=== PATIENT | female | born 1980 | race Caucasian/White ===

== ENCOUNTER 2019-02-09 08:05 | Day surgery (SDC) | payer OTHER ==
[2019-01-30 12:11] LABS: HEMATOCRIT 43.8 % (36.0-47.0); HEMOGLOBIN 15.4 g/dL (12.0-15.5); MEAN CORPUSCULAR HEMOGLOBIN 32.4 pg (27.0-33.4); MEAN CORPUSCULAR HGB CONC 35.1 g/dL (32.0-36.0); MEAN CORPUSCULAR VOLUME 92 fl (80-97); PLATELET COUNT 210 10^3/uL (150-450); RED BLOOD COUNT 4.75 10^6/uL (3.72-5.28); RED CELL DISTRIBUTION WIDTH 13.2 % (11.5-14.0)
[2019-01-30 12:34] LABS: ALBUMIN 4.4 g/dL (3.5-5.0); ALKALINE PHOSPHATASE 74 U/L (38-126); ANION GAP 10 (5-19); ASPARTATE AMINO TRANSFERASE 24 U/L (14-36); BILIRUBIN,DIRECT 0.1 mg/dL (0.0-0.4); BILIRUBIN,TOTAL 0.6 mg/dL (0.2-1.3); BLOOD UREA NITROGEN 15 mg/dL (7-20); CALCIUM 9.6 mg/dL (8.4-10.2); CARBON DIOXIDE 27 mmol/L (22-30); CHLORIDE 103 mmol/L (98-107); GLUCOSE 91 mg/dL (75-110); POTASSIUM 3.6 mmol/L (3.6-5.0); TOTAL PROTEIN 7.7 g/dL (6.3-8.2)
[2019-01-30 12:37] LABS: APPEARANCE,URINE CLOUDY; BILIRUBIN,URINE NEGATIVE (NEGATIVE); COLOR,URINE YELLOW; GLUCOSE, URINE NEGATIVE (NEGATIVE); KETONES,URINE NEGATIVE (NEGATIVE); LEUKOCYTE ESTERASE,URINE TRACE (NEGATIVE); NITRITE,URINE NEGATIVE (NEGATIVE); PROTEIN,URINE 30 mg/dL (NEGATIVE); URINE SPECIFIC GRAVITY 1.026; UROBILINOGEN,URINE NEGATIVE mg/dL (<2.0)
[~2019-02-09 08:05] MED LIST: CEFAZOLIN SODIUM 1 GM in DEXTROSE 5%-WATER 50 ML IV PRN; DEXAMETHASONE SOD PHOSPHATE INJ 4 MG/1 ML VIAL ONE; GLYCOPYRROLATE 1 MG/5 ML VIAL ONE; KETOROLAC TROMETHAMINE 60 MG/2 ML SDV ONE; LACTATED RINGERS 1000 ML IV PRN; LIDOCAINE 2% INJ-PF (20 MG/ML) 2 ML AMPUL ONE; NEOSTIGMINE METHYLSULFATE 10 MG/10 ML VIAL ONE; ONDANSETRON HCL INJ/PF 4 MG/2 ML SDV ONE; ROCURONIUM BROMIDE INJ 50 MG/5 ML VIAL IV ONE; SUCCINYLCHOLINE CHLORIDE INJ 200 MG/10 ML VIAL ONE
[2019-02-09] MEDS ORDERED: BUPIVACAINE HCL 0.25 % INJ/PF (2.5 MG/1 ML) 30 ML VIAL ONE (09:49)
[2019-02-09] MEDS ORDERED: MIDAZOLAM 2 MG/2 ML INJ ONE (09:49)
[2019-02-09] MEDS ORDERED: FENTANYL CITRATE INJ/PF 250 MCG/5 ML AMPULE ONE (09:49)
[2019-02-09] MEDS ORDERED: PROPOFOL INJ 200 MG/20 ML VIAL IV ONE (09:49)
[2019-02-09] MEDS ORDERED: MEPERIDINE HCL/PF INJ 25 MG/1 ML DISP.SYRIN IV PRN (10:37)
[2019-02-09] MEDS ORDERED: OXYCODONE-ACETAMINOPHEN 5-325 MG TABLET PO PRN ×2 (10:37)
[2019-02-09] MEDS ORDERED: FENTANYL CITRATE INJ/PF 100 MCG/2 ML AMPUL IV PRN ×3 (10:37)
[2019-02-09] MEDS ORDERED: PROMETHAZINE HCL INJ 25 MG/1 ML VIAL IV PRN ×2 (10:37)
[2019-02-09] MEDS ORDERED: DIPHENHYDRAMINE HCL 50 MG/ML VIAL IV PRN (10:37)
--- NOTE | 2019-02-09 12:50 | Operative Report ---
Operative Report DATE OF SURGERY: 02/09/19 PREOPERATIVE DIAGNOSIS: Pelvic pain POSTOPERATIVE DIAGNOSIS: Same plus adhesions and a left ovarian simple cyst OPERATION: Attempted robotic assisted hysterectomy with open laparotomy and total abdominal hysterectomy bilateral salpingo-ectomy and aspiration of left ovarian cyst SURGEON: JOSE CARRIZALES 1ST TITLE ASSISTANT: OPAL WANG ANESTHESIA: GA TISSUE REMOVED OR ALTERED: Uterus and tubes COMPLICATIONS: Multiple adhesions from the bladder to the anterior surface of the uterus ESTIMATED BLOOD LOSS: 500 cc PROCEDURE: Patient was placed in a dorsal lithotomy was prepped and sterile fashion. Speculum placed cervix visualized and grasped with single-tooth tenaculum sounded to a depth of 8 cm. The V care is in place per protocol. Speculum is removed and attention turned to the abdomen where a supraumbilical incision was made trocar was introduced with insufflation of the abdomen. This was noted and there were adhesions noted from the anterior abdominal wall to the surface of the uterus. Second puncture made lateral to the first on the right of 5 trocar was reduced third lateral on the left and a 5 was introduced and a accessory port on super iliac crest. Robot was docked in usual fashion. Using monopolar and bipolar cautery the left tube was identified and divided along the mesosalpinx to the round ligament. This was repeated on the right. The broad ligaments divided down to the level of the adhesions with each pedicle being cauterized and divided. The bladder flap could not be made using robotic techniques and was decided to abandon the laparoscopic approach and open the abdomen. The robot was undocked and the trocar sleeves were removed. A Pfannenstiel incision was made to the existing Pfannenstiel eschar with the incision extended through the subcutaneous tissue and fascia resection fascia start divided rectus musculature divided in a prior to peritoneum was entered with sharp dissection. It was packed with moistened packs and retractor was placed. Mendy was called for assistance. Uterus were grasped with a thyroid clamp and serial clamps on each side of the uterus each pedicle being clamped divided suture 2-0 Vicryl the bladder flap was created with sharp and blunt dissection. The excision down the broad ligament on both sides was continued to the level of the cervix was crossclamped and uterus removed with sharp dissection. Was closed with interrupted sutures of 2-0 Vicryl. Was irrigated with normal saline hemostasis was noted. Removed and the retractor were removed. Closure 0 Vicryl running fashion and the skin with insorb piero. The puncture wounds previously made were closed with 4-0 Vicryl subcu. Patient he remained clear without procedure she was taken to recovery room in good condition
[2019-02-09] MEDS: FENTANYL CITRATE INJ/PF 100 MCG/2 ML AMPUL ONE ×2 (12:55→13:01)
[2019-02-09] MEDS ORDERED: PROMETHAZINE HCL INJ 25 MG/1 ML VIAL ONE (13:03)
[2019-02-09] MEDS ORDERED: ACETAMINOPHEN 1,000 MG/100 ML RTUPB IV ONE (13:41)
[2019-02-09] MEDS ORDERED: MORPHINE SULFATE 10 MG/ML INJ ONE (13:41)
[2019-02-09] MEDS ORDERED: DEXTROSE 5%-LACTATED RINGERS 1,000 ML IV PRN (13:48)
[2019-02-09] MEDS ORDERED: MORPHINE SULFATE 10 MG/ML INJ IM PRN (13:49)
[2019-02-09] MEDS: OXYCODONE-ACETAMINOPHEN 5-325 MG TABLET PO PRN (15:29)
[2019-02-09] MEDS: IBUPROFEN 800 MG TABLET PO SCH ×2 (17:43→21:00)
[2019-02-10] MEDS: IBUPROFEN 800 MG TABLET PO SCH ×3 (05:53→21:01)
--- NOTE | 2019-02-10 07:31 | PDOC DISCHARGE SUMMARY ---
Impression - Admit/DC Date/PCP Admission Date/Primary Care Provider: JOSE CARRIZALES MD Discharge Date: 02/10/19 - Discharge Diagnosis (1) Endometriosis Is this a current diagnosis for this admission?: Yes - Additional Information Resuscitation Status: Full Code Discharge Diet: As Tolerated Discharge Activity: Activity As Tolerated, Energy Conservation, No Lifting/Push/Pulling, Pelvic Rest, No tub bath, Walk Frequently Referrals: JOSE CARRIZALES MD [Primary Care Provider] - 02/17/19 8:30 am (ANY QUESTION OR CONCERNS CALL THE OFFICE.) Home Medications: No Home Medications 01/30/19 History of Present Illiness History of Present Illness: YENIFER MANRIQUEZ is a 38 year old female admitted for hysterectomy because of pelvic pain and failed conservative therapy. Hospital Course Hospital Course: pt tolerationg regular diet bladder fuction good and ambulating without difficulty. Afebrile and alert. Physical Exam - Physical Exam Vital Signs: Temp Pulse Resp BP Pulse Ox 98.9 F 77 18 112/67 94 02/10/19 04:06 02/10/19 04:06 02/10/19 04:06 02/10/19 04:06 02/10/19 04:06 Intake & Output 02/09/19 02/10/19 02/11/19 06:59 06:59 06:59 Intake Total 2000 Output Total 1999 Balance 0 Weight 111.5 kg General appearance: PRESENT: no acute distress Respiratory exam: PRESENT: clear to auscultation lauren Cardiovascular exam: PRESENT: RRR GI/Abdominal exam: PRESENT: soft Results Laboratory Results: WBC 9.0 10^3/uL (4.0-10.5) 01/30/19 11:09 RBC 4.75 10^6/uL (3.72-5.28) 01/30/19 11:09 Hgb 15.4 g/dL (12.0-15.5) 01/30/19 11:09 Hct 43.8 % (36.0-47.0) 01/30/19 11:09 MCV 92 fl (80-97) 01/30/19 11:09 MCH 32.4 pg (27.0-33.4) 01/30/19 11:09 MCHC 35.1 g/dL (32.0-36.0) 01/30/19 11:09 RDW 13.2 % (11.5-14.0) 01/30/19 11:09 Plt Count 210 10^3/uL (150-450) 01/30/19 11:09 Sodium 140.1 mmol/L (137-145) 01/30/19 11:09 Potassium 3.6 mmol/L (3.6-5.0) 01/30/19 11:09 Chloride 103 mmol/L (98-107) 01/30/19 11:09 Carbon Dioxide 27 mmol/L (22-30) 01/30/19 11:09 Anion Gap 10 (5-19) 01/30/19 11:09 BUN 15 mg/dL (7-20) 01/30/19 11:09 Creatinine 0.76 mg/dL (0.52-1.25) 01/30/19 11:09 Est GFR ( Amer) > 60 (>60) 01/30/19 11:09 Est GFR (MDRD) Non-Af > 60 (>60) 01/30/19 11:09 Glucose 91 mg/dL (75-110) 01/30/19 11:09 Calcium 9.6 mg/dL (8.4-10.2) 01/30/19 11:09 Total Bilirubin 0.6 mg/dL (0.2-1.3) 01/30/19 11:09 Direct Bilirubin 0.1 mg/dL (0.0-0.4) 01/30/19 11:09 Neonat Total Bilirubin Not Reportable 01/30/19 11:09 Neonat Direct Bilirubin Not Reportable 01/30/19 11:09 Neonat Indirect Bili Not Reportable 01/30/19 11:09 AST 24 U/L (14-36) 01/30/19 11:09 ALT 25 U/L (<35) 01/30/19 11:09 Alkaline Phosphatase 74 U/L (38-126) 01/30/19 11:09 Total Protein 7.7 g/dL (6.3-8.2) 01/30/19 11:09 Albumin 4.4 g/dL (3.5-5.0) 01/30/19 11:09 Urine Color YELLOW 01/30/19 11:12 Urine Appearance CLOUDY 01/30/19 11:12 Urine pH 5.0 (5.0-9.0) 01/30/19 11:12 Ur Specific [place] 1.026 01/30/19 11:12 Urine Protein 30 mg/dL (NEGATIVE) H 01/30/19 11:12 Urine Glucose (UA) NEGATIVE mg/dL (NEGATIVE) 01/30/19 11:12 Urine Ketones NEGATIVE mg/dL (NEGATIVE) 01/30/19 11:12 Urine Blood NEGATIVE (NEGATIVE) 01/30/19 11:12 Urine Nitrite NEGATIVE (NEGATIVE) 01/30/19 11:12 Urine Bilirubin NEGATIVE (NEGATIVE) 01/30/19 11:12 Urine Urobilinogen NEGATIVE mg/dL (<2.0) 01/30/19 11:12 Ur Leukocyte Esterase TRACE (NEGATIVE) H 01/30/19 11:12 Urine WBC (Auto) 16 /HPF 01/30/19 11:12 Urine RBC (Auto) 8 /HPF 01/30/19 11:12 Urine WBC Clumps FEW /HPF 01/30/19 11:12 Squamous Epi Cells Auto 33 /HPF 01/30/19 11:12 Urine Mucus (Auto) MANY /LPF 01/30/19 11:12 Urine Ascorbic Acid NEGATIVE (NEGATIVE) 01/30/19 11:12 Urine HCG, Qual NEGATIVE (NEGATIVE) 02/09/19 08:00 Blood Type O NEGATIVE 02/07/19 10:00 Antibody Screen NEGATIVE 02/07/19 10:00 Stroke Is this a Stroke Patient?: No Acute Heart Failure - Is this a Heart Failure Patient?: No
[2019-02-10] MEDS: OXYCODONE-ACETAMINOPHEN 5-325 MG TABLET PO PRN ×2 (10:23→23:44)
[2019-02-11] MEDS: IBUPROFEN 800 MG TABLET PO SCH (05:20)
[2019-02-11 09:18] VITALS: BP 105/59
--- NOTE | 2019-02-11 09:18 | PDOC DISCHARGE SUMMARY ---
Impression - Admit/DC Date/PCP Admission Date/Primary Care Provider: JOSE CARRIZALES MD Discharge Date: 02/11/19 - Assessment Summary: Please see the discharge note from yesterday. The patient is doing well today and wishes to rest at home. - Additional Information Resuscitation Status: Full Code Discharge Diet: As Tolerated Discharge Activity: Activity As Tolerated, Energy Conservation, No Lifting/Push/Pulling, Pelvic Rest, No tub bath, Walk Frequently Referrals: JOSE CARRIZALES MD [Primary Care Provider] - 02/17/19 8:30 am (ANY QUESTION OR CONCERNS CALL THE OFFICE.) Home Medications: No Home Medications 01/30/19 History of Present Illiness History of Present Illness: YENIFER MANRIQUEZ is a 38 year old female Hospital Course Hospital Course: pt tolerationg regular diet bladder fuction good and ambulating without difficulty. Afebrile and alert. Physical Exam - Physical Exam Vital Signs: Temp Pulse Resp BP Pulse Ox 97.8 F 74 16 110/60 99 02/11/19 03:46 02/11/19 03:46 02/11/19 03:46 02/11/19 03:46 02/11/19 03:46 Intake & Output 02/10/19 02/11/19 02/12/19 06:59 06:59 06:59 Intake Total 1999 900 Output Total 1999 1575 Balance 0 -675 Weight 111.5 kg 111 kg Results Laboratory Results: WBC 9.0 10^3/uL (4.0-10.5) 01/30/19 11:09 RBC 4.75 10^6/uL (3.72-5.28) 01/30/19 11:09 Hgb 15.4 g/dL (12.0-15.5) 01/30/19 11:09 Hct 43.8 % (36.0-47.0) 01/30/19 11:09 MCV 92 fl (80-97) 01/30/19 11:09 MCH 32.4 pg (27.0-33.4) 01/30/19 11:09 MCHC 35.1 g/dL (32.0-36.0) 01/30/19 11:09 RDW 13.2 % (11.5-14.0) 01/30/19 11:09 Plt Count 210 10^3/uL (150-450) 01/30/19 11:09 Sodium 140.1 mmol/L (137-145) 01/30/19 11:09 Potassium 3.6 mmol/L (3.6-5.0) 01/30/19 11:09 Chloride 103 mmol/L (98-107) 01/30/19 11:09 Carbon Dioxide 27 mmol/L (22-30) 01/30/19 11:09 Anion Gap 10 (5-19) 01/30/19 11:09 BUN 15 mg/dL (7-20) 01/30/19 11:09 Creatinine 0.76 mg/dL (0.52-1.25) 01/30/19 11:09 Est GFR ( Amer) > 60 (>60) 01/30/19 11:09 Est GFR (MDRD) Non-Af > 60 (>60) 01/30/19 11:09 Glucose 91 mg/dL (75-110) 01/30/19 11:09 Calcium 9.6 mg/dL (8.4-10.2) 01/30/19 11:09 Total Bilirubin 0.6 mg/dL (0.2-1.3) 01/30/19 11:09 Direct Bilirubin 0.1 mg/dL (0.0-0.4) 01/30/19 11:09 Neonat Total Bilirubin Not Reportable 01/30/19 11:09 Neonat Direct Bilirubin Not Reportable 01/30/19 11:09 Neonat Indirect Bili Not Reportable 01/30/19 11:09 AST 24 U/L (14-36) 01/30/19 11:09 ALT 25 U/L (<35) 01/30/19 11:09 Alkaline Phosphatase 74 U/L (38-126) 01/30/19 11:09 Total Protein 7.7 g/dL (6.3-8.2) 01/30/19 11:09 Albumin 4.4 g/dL (3.5-5.0) 01/30/19 11:09 Urine Color YELLOW 01/30/19 11:12 Urine Appearance CLOUDY 01/30/19 11:12 Urine pH 5.0 (5.0-9.0) 01/30/19 11:12 Ur Specific [place] 1.026 01/30/19 11:12 Urine Protein 30 mg/dL (NEGATIVE) H 01/30/19 11:12 Urine Glucose (UA) NEGATIVE mg/dL (NEGATIVE) 01/30/19 11:12 Urine Ketones NEGATIVE mg/dL (NEGATIVE) 01/30/19 11:12 Urine Blood NEGATIVE (NEGATIVE) 01/30/19 11:12 Urine Nitrite NEGATIVE (NEGATIVE) 01/30/19 11:12 Urine Bilirubin NEGATIVE (NEGATIVE) 01/30/19 11:12 Urine Urobilinogen NEGATIVE mg/dL (<2.0) 01/30/19 11:12 Ur Leukocyte Esterase TRACE (NEGATIVE) H 01/30/19 11:12 Urine WBC (Auto) 16 /HPF 01/30/19 11:12 Urine RBC (Auto) 8 /HPF 01/30/19 11:12 Urine WBC Clumps FEW /HPF 01/30/19 11:12 Squamous Epi Cells Auto 33 /HPF 01/30/19 11:12 Urine Mucus (Auto) MANY /LPF 01/30/19 11:12 Urine Ascorbic Acid NEGATIVE (NEGATIVE) 01/30/19 11:12 Urine HCG, Qual NEGATIVE (NEGATIVE) 02/09/19 08:00 Blood Type O NEGATIVE 02/07/19 10:00 Antibody Screen NEGATIVE 02/07/19 10:00 Stroke Is this a Stroke Patient?: No Acute Heart Failure - Is this a Heart Failure Patient?: No
== END 2019-02-11 11:05 | disposition home or self-care (01) ==
LOC: OROUT 08:05 → 2N 14:25 → OROUT 02-11 11:05
PROVIDERS: ATTEND Obstetrics & Gynecology Gynecology
DX: N80.0 Endometriosis of uterus (principal); R10.2 Pelvic and perineal pain; N73.6 Female pelvic peritoneal adhesions (postinfective); N83.292 Other ovarian cyst, left side; Z53.31 Laparoscopic surgical procedure converted to open procedure; E66.9 Obesity, unspecified; Z68.41 Body mass index [BMI] 40.0-44.9, adult
CPT/HCPCS: 58150; 58571; 58999; S2900; 36415; 80053; 81001; 81025; 840; 85027; 86850; 86900; 86901; 88307; J0131; J0330; J0690; J1100; J1885; J2250; J2270; J2405; J2550; J2704; J2710; J3010; J3490; J7060